=== PATIENT | female | born 1970 | race Caucasian/White ===

== ENCOUNTER 2017-12-13 04:42 | Emergency (ER) | payer BC, OTHER ==
[2017-12-13 04:56] VITALS: RESP 18
--- NOTE | 2017-12-13 05:28 | ED ---
Fever HPI - General Chief Complaint: Fever Stated Complaint: Back Pain, chills, SOB Time Seen by Provider: 12/13/17 05:05 Source: patient Mode of arrival: ambulatory Limitations: no limitations - History of Present Illness Initial Comments: This patient is a 47-year-old woman who presents to be evaluated for feeling cold and having shaking chills tonight. She states that the symptoms started while she was in bed approximately 2-3 hours ago. The patient states that she had been feeling like her usual self until about 6 PM, when she notes some pain in her mid back. She describes it as somewhat achy, constant for about 2-3 hours, and without worsening or relieving factors. She states it was moderate intensity. She states that she went to bed and then woke with the shaking chills. She did not notice fever at home. She denies headache, sinus congestion, ear pain or sore throat. No neck pain. No chest or abdominal pain area no cough or palpitations. Patient has not noted any urinary symptoms. No change in bowel movements. No rash. Remainder of review of systems negative. MD Complaint: other (Chills) Onset/Timin -: hour(s) Temperature Source: subjective Associated Symptoms: chills, rigors Treatments Prior to Arrival: none - Related Data Home Medications Medication Instructions Recorded Confirmed Albuterol Inhaler [Ventolin 1 - 2 puff INHALATION RT-Q6H PRN 07/18/14 12/13/17 Inhaler] Atorvastatin [Lipitor] 20 mg PO DAILY 07/18/14 12/13/17 Cetirizine HCl [Zyrtec] 10 mg PO DAILY 07/18/14 12/13/17 Fluticasone Propionate [Flonase] 1 spr INTRANASAL DAILY 07/18/14 12/13/17 Aspirin EC [Ecotrin Low Dose] 81 mg PO ONCE PRN 12/13/17 12/13/17 Cholecalciferol (Vitamin D3) 2,000 unit PO DAILY 12/13/17 12/13/17 [Vitamin D3] Desonide 0.05% Lot 1 applic TOPICAL BID 12/13/17 12/13/17 Levothyroxine Sodium [Synthroid] 25 mcg PO [id number] 12/13/17 12/13/17 Levothyroxine Sodium [Synthroid] 50 mcg PO LITTLE 12/13/17 12/13/17 Magnesium Oxide [Mag-Ox] 400 mg PO DAILY 12/13/17 12/13/17 [place] Wort 300 mg PO DAILY 12/13/17 12/13/17 Ubidecarenone [Co Q-10] 100 mg PO DAILY 12/13/17 12/13/17 metroNIDAZOLE 1% GEL [Metrogel 1%] 1 applic TOPICAL DAILY 12/13/17 12/13/17 Previous Rx's Medication Instructions Recorded Azithromycin [Zithromax Z-pack] 250 mg PO DIRECTED #6 tab 12/13/17 Allergies Allergy/AdvReac Type Severity Reaction Status Date / Time sulfamethoxazole Allergy Rash/Hives Verified 12/13/17 07:29 [From Bactrim] trimethoprim [From Bactrim] Allergy Rash/Hives Verified 12/13/17 07:29 Review of Systems ROS Statement: Those systems with pertinent positive or pertinent negative responses have been documented in the HPI. ROS Other: All systems not noted in ROS Statement are negative. Constitutional: Reports: as per HPI, chills. Denies: fever, weakness ENT: Denies: ear pain, throat pain, congestion Respiratory: Denies: cough, dyspnea Cardiovascular: Denies: chest pain, palpitations Gastrointestinal: Denies: abdominal pain, vomiting, diarrhea Genitourinary: Denies: dysuria, hematuria Musculoskeletal: Reports: as per HPI, back pain Skin: Denies: rash Neurological: Denies: headache, weakness, numbness Past Medical History Past Medical History: Asthma, Hyperlipidemia, Thyroid Disorder Additional Past Medical History / Comment(s): SEASONAL ALLERGIES History of Any Multi-Drug Resistant Organisms: None Reported Past Surgical History: Section, Orthopedic Surgery Additional Past Surgical History / Comment(s): ANKLE SX Past Anesthesia/Blood Transfusion Reactions: No Reported Reaction Past Psychological History: No Psychological Hx Reported Smoking Status: Never smoker Past Alcohol Use History: None Reported Past Drug Use History: None Reported General Exam Limitations: no limitations General appearance: alert, in no apparent distress Head exam: Present: atraumatic, normocephalic Eye exam: Present: normal appearance ENT exam: Present: normal oropharynx, mucous membranes moist Neck exam: Present: normal inspection, full ROM. Absent: meningismus Respiratory exam: Present: normal lung sounds bilaterally. Absent: respiratory distress, wheezes, rales, rhonchi, stridor Cardiovascular Exam: Present: normal rhythm, tachycardia (Rate 104 at my exam), normal heart sounds. Absent: systolic murmur, diastolic murmur, rubs, gallop GI/Abdominal exam: Present: soft. Absent: distended, tenderness, guarding, rebound, mass Extremities exam: Present: normal inspection, normal capillary refill. Absent: pedal edema, calf tenderness Back exam: Present: normal inspection. Absent: CVA tenderness (R), CVA tenderness (L), paraspinal tenderness, vertebral tenderness Neurological exam: Present: alert Skin exam: Present: warm, dry, intact, normal color. Absent: rash Course Vital Signs 12/13/17 12/13/17 12/13/17 04:53 06:44 07:18 Temperature 100.9 F H 100.8 F H Pulse Rate 109 H 90 82 Respiratory 18 18 18 Rate Blood Pressure 134/88 130/71 130/74 O2 Sat by Pulse 97 95 94 L Oximetry Medical Decision Making - Lab Data Lab Results 12/13/17 12/13/17 Range/Units 06:27 06:27 Urine Color Light Yellow Urine Appearance Clear (Clear) Urine pH 6.0 (5.0-8.0) Ur Specific [place] 1.011 (1.001-1.035) Urine Protein Negative (Negative) Urine Glucose (UA) Negative (Negative) Urine Ketones Negative (Negative) Urine Blood Negative (Negative) Urine Nitrite Negative (Negative) Urine Bilirubin Negative (Negative) Urine Urobilinogen <2.0 (<2.0) mg/dL Ur Leukocyte Esterase Small H (Negative) Urine WBC 3 (0-5) /hpf Ur Squamous Epith Cells 1 (0-4) /hpf Urine Bacteria Rare H (None) /hpf Urine Mucus Rare H (None) /hpf Urine HCG, Qual Not Detected (Not Detectd) Disposition Clinical Impression: Fever, Viral syndrome Disposition: HOME SELF-CARE Condition: Good Instructions: Fever in Adults (ED) Prescriptions: Azithromycin [Zithromax Z-pack] 250 mg PO DIRECTED #6 tab Is patient prescribed a controlled substance at d/c from ED?: No Referrals: Juan R Daniels MD [Primary Care Provider] - 1-2 days
[2017-12-13 06:52] LABS: Appearance,Urine Clear (Clear); Bacteria,Urine Rare /hpf; Bilirubin,Urine Negative (Negative); Blood,Urine Negative (Negative); Color,Urine Light Yellow; Glucose,Urine (UA) Negative (Negative); Ketones,Urine Negative (Negative); Leukocyte Esterase,Urine Small (Negative); Mucus,Urine Rare /hpf; Nitrite,Urine Negative (Negative); Protein,Urine Negative (Negative); Specific Gravity,Urine 1.011 (1.001-1.035); Squamous Epithelial Cell,Urine 1 /hpf (0-4); Urobilinogen,Urine <2.0 mg/dL (<2.0); WBC,Urine 3 /hpf (0-5)
--- NOTE | 2017-12-13 07:44 | XR ---
EXAMINATION TYPE: XR chest 2V DATE OF EXAM: 12/13/2017 COMPARISON: None HISTORY: 47-year-old female with fevers and chest pain TECHNIQUE: PA and lateral views FINDINGS: The cardiomediastinal silhouette, aorta, and pulmonary vasculature are within normal limits. No conso lidation or pleural effusion. IMPRESSION: No acute cardiopulmonary process.
[2017-12-13] MEDS ORDERED: ACETAMINOPHEN TAB 325 MG TAB PO STA (08:52)
[2017-12-13 09:11] VITALS: BP 129/68; PULSE 93; TEMP 100.7
== END 2017-12-13 09:10 | disposition home or self-care (01) ==
LOC: SUPCPDRO 04:42 → EC 04:42
DX: B34.9 Viral infection, unspecified (principal); R00.0 Tachycardia, unspecified; J45.909 Unspecified asthma, uncomplicated; E78.5 Hyperlipidemia, unspecified; E07.9 Disorder of thyroid, unspecified; Z79.52 Long term (current) use of systemic steroids; Z79.82 Long term (current) use of aspirin; Z79.899 Other long term (current) drug therapy; Z88.1 Allergy status to other antibiotic agents; Z91.09 Other allergy status, other than to drugs and biological substances
CPT/HCPCS: 71046; 81001; 81025; 99283